=== PATIENT | female | born 1980 | race Caucasian/White ===

== ENCOUNTER 2016-04-01 11:49 | Emergency (ER) | payer BC, OTHER ==
[2016-04-01] MEDS ORDERED: PROMETHAZINE 25 MG/1 ML VIAL IM STA (13:49)
[2016-04-01] MEDS ORDERED: HYDROmorphone 1 MG/ML SYRINGE IM STA ×3 (13:49→15:13)
[2016-04-01] MEDS ORDERED: CYCLOBENZAPRINE 10 MG TABLET PO STA (13:49)
[2016-04-01] MEDS ORDERED: KETOROLAC 60 MG/2 ML VIAL IM STA (13:49)
[2016-04-01] MEDS ORDERED: HYDROmorphone 1 MG/ML SYRINGE ONE ×3 (13:52→15:21)
[2016-04-01] MEDS ORDERED: PROMETHAZINE 25 MG/1 ML VIAL ONE (13:52)
[2016-04-01] MEDS ORDERED: KETOROLAC 60 MG/2 ML VIAL ONE (13:53)
[2016-04-01] MEDS ORDERED: CYCLOBENZAPRINE 10 MG TABLET PO ONE (13:53)
[2016-04-01] MEDS ORDERED: diazePAM 5 MG TABLET PO STA (14:20)
[2016-04-01] MEDS ORDERED: diazePAM 5 MG TABLET PO ONE (14:21)
== END 2016-04-01 16:28 | disposition home or self-care (01) ==
DX: M54.2 Cervicalgia (principal); M25.511 Pain in right shoulder; R51 Headache
CPT/HCPCS: 20552; 96372; 99283; 99284; A9270; J1170

== ENCOUNTER 2016-12-07 14:38 | Emergency (ER) | payer BC, OTHER ==
[2016-12-07 14:54] VITALS: BP 166/99
--- NOTE | 2016-12-07 15:34 | ED Physician Documentation ---
PD HPI HEADACHE - Stated complaint Stated Complaint: HEADACHE - Chief complaint Chief Complaint: Neuro - History obtained from History obtained from: Patient - History of Present Illness Timing - onset: Other (This is a 36-year-old woman with daily headaches, usually a 3 out of 10, managed with tramadol, Topamax. For the last week her usual headache has been present but worse than normal, a whole body headache which is associated with neck stiffness, but that is common for her. No infectious symptoms such as fever or nasal congestion. She tried home remedies without relief. That said actually she is out of her Flexeril which he usually uses for headaches as well.) Review of Systems Constitutional: denies: Fever, Chills Ears: denies: Loss of hearing, Ear pain Nose: denies: Rhinorrhea / runny nose, Congestion, Sinus pressure / pain GI: reports: Vomiting. denies: Abdominal Pain, Diarrhea : denies: Now EGA PD PAST MEDICAL HISTORY - Past Medical History Neuro: Headache/migraine - Past Surgical History Past Surgical History: No - Present Medications Home Medications: Ambulatory Orders Medication Instructions Recorded Confirmed Cyclobenzaprine [Flexeril] 10 mg PRN 04/01/16 Lamotrigine Dose Unknown 04/01/16 [place] 100 mg TID 04/01/16 04/01/16 Potassium For Blood Pressure 04/01/16 Seroquel Dose Unknown 04/01/16 traMADol [Ultram] 1 - 2 tab QID PRN 04/01/16 04/01/16 Albuterol 2.5 mg PO BID 12/07/16 12/07/16 Topiramate [Topamax] 1 tab PO DAILY 12/07/16 12/07/16 - Allergies Allergies/Adverse Reactions: Allergies Allergy/AdvReac Type Severity Reaction Status Date / Time codeine Allergy Nausea Verified 12/07/16 14:55 Penicillins Allergy Rash Verified 12/07/16 14:55 - Social History Does the pt smoke?: No Smoking Status: Never smoker Does the pt drink ETOH?: No Does the pt have substance abuse?: No - Immunizations Immunizations are current?: Yes PD ED PE NORMAL - Vitals Vital signs reviewed: Yes - General General: Alert and oriented X 3, Other (Uncomfortable and photophobic) - HEENT HEENT: PERRL, EOMI - Neck Neck: Supple, no meningeal sign - Cardiac Cardiac: RRR, No murmur - Respiratory Respiratory: No respiratory distress, Clear bilaterally - Abdomen Abdomen: Non tender - Neuro Neuro: Alert and oriented X 3, co founder and 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 2-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, No motor deficit, No sensory deficit, Normal speech - Psych Psych: Normal mood, Normal affect Results - Vitals Vitals: Vital Signs - 24 hr 12/07/16 14:50 Temperature 36.5 C Heart Rate 92 Respiratory 18 Rate Blood Pressure 166/99 H O2 Saturation 100 Oxygen O2 Source Room air - Labs Labs: Laboratory Tests 12/07/16 12/07/16 15:45 15:45 Sodium 137 Potassium 3.6 Chloride 106 Carbon Dioxide 22 Anion Gap 9.0 BUN 15 Creatinine 0.9 Estimated GFR (MDRD) 71 L Glucose 99 Calcium 8.9 Last Dose Date UNKNOWN Last Dose Time UNKNOWN [place] 0.13 PD MEDICAL DECISION MAKING - ED course ED course: The headache is gradual in onset and similar to prior headaches. As such I doubt subarachnoid hemorrhage. There are no infectious symptoms such as fever or stiff neck to make me suspect meningitis. No carbon monoxide exposure by history. She was administered IV fluids, Toradol, Compazine, Benadryl. On recheck at 1430 her headache was back down to her baseline level and requested discharge. Departure - Departure Disposition: 01 Home, Self Care Clinical Impression: Migraine Qualifiers: Migraine type: without aura Status migrainosus presence: with status migrainosus Intractability: intractable Qualified Code(s): G43.011 - Migraine without aura, intractable, with status migrainosus Condition: Good Record reviewed to determine appropriate education?: Yes Instructions: ED Headache Migraine Comments: Call your doctor to arrange a follow-up appointment, make the next available appointment. In the interim, return anytime if worse or if new symptoms develop. Your blood pressure was elevated today on check into the emergency department. This does not mean that you have hypertension, it is a common phenomenon to come to the emergency department and have elevated blood pressure. I recommend that she see your primary care physician within the week to have it rechecked when you are feeling better. Discharge Date/Time: 12/07/16 16:47
[2016-12-07] MEDS ORDERED: diphenhydrAMINE INJ 50 MG/ML VIAL ONE (15:45)
[2016-12-07] MEDS ORDERED: SODIUM CHLORIDE FLUSH 0.9% 10 ML SYRINGE IVP ONE ×4 (15:45→15:49)
[2016-12-07] MEDS ORDERED: PROCHLORPERAZINE 10 MG/2 ML VIAL ONE (15:45)
[2016-12-07] MEDS ORDERED: DEXAMETHASONE 10 MG/ML VIAL ONE (15:45)
[2016-12-07] MEDS ORDERED: KETOROLAC 30 MG/ML VIAL ONE (15:45)
[2016-12-07] MEDS: PROCHLORPERAZINE 10 MG/2 ML VIAL IVP STA (15:55)
[2016-12-07] MEDS: DEXAMETHASONE 10 MG/ML VIAL IVP STA (16:06)
[2016-12-07] MEDS: SODIUM CHLORIDE 0.9% 1,000 ML IV ONE (16:10)
[2016-12-07] MEDS: KETOROLAC 60 MG/2 ML VIAL IVP STA (16:10)
[2016-12-07] MEDS: diphenhydrAMINE INJ 50 MG/ML VIAL IVP STA (16:11)
[2016-12-07 16:17] LABS: CALCIUM 8.9 mg/dL (8.5-10.3); CREATININE 0.9 mg/dL (0.4-1.0); POTASSIUM 3.6 mmol/L (3.5-5.0)
== END 2016-12-07 16:47 | disposition home or self-care (01) ==
LOC: ED 14:38
DX: G43.011 Migraine without aura, intractable, with status migrainosus (principal); R03.0 Elevated blood-pressure reading, without diagnosis of hypertension
CPT/HCPCS: 36415; 80048; 80178; 96361; 96374; 96375; 99283; 99284

== ENCOUNTER 2017-04-20 19:35 | Emergency (ER) | payer BC, OTHER ==
[2017-04-20] MEDS ORDERED: LIDOCAINE 1% 2 ML VIAL ONE (19:54)
[2017-04-20] MEDS ORDERED: TETANUS/DIPHTHERIA/PERTUSSIS 0.5 ML SYRINGE IM ONE (20:07)
[2017-04-20] MEDS ORDERED: BUFFERED LIDOCAINE 10 ML SYRINGE SUBQ STA (20:07)
--- NOTE | 2017-04-20 20:12 | ED Physician Documentation ---
PD HPI UPPER EXT INJURY - Stated complaint Stated Complaint: RT INDEX FINGER LACERATION - Chief complaint Chief Complaint: Laceration - History obtained from History obtained from: Patient - History of Present Illness Location: Other (Right-handed woman with unknown tetanus status cut herself on a broken glass dish tonight at home and has a laceration on the right index finger.) Review of Systems Constitutional: reports: Reviewed and negative Eyes: reports: Reviewed and negative Nose: reports: Reviewed and negative Cardiac: reports: Reviewed and negative PD PAST MEDICAL HISTORY - Past Medical History Past Medical History: Yes Neuro: Headache/migraine - Past Surgical History Past Surgical History: No - Present Medications Home Medications: Ambulatory Orders Medication Instructions Recorded Confirmed [place] 100 mg TID 04/01/16 04/01/16 Potassium For Blood Pressure 04/01/16 Seroquel Dose Unknown 04/01/16 traMADol [Ultram] 1 - 2 tab QID PRN 04/01/16 04/01/16 Topiramate [Topamax] 1 tab PO DAILY 12/07/16 12/07/16 - Allergies Allergies/Adverse Reactions: Allergies Allergy/AdvReac Type Severity Reaction Status Date / Time codeine Allergy Nausea Verified 04/20/17 19:40 Penicillins Allergy Rash Verified 04/20/17 19:40 - Social History Does the pt smoke?: No Smoking Status: Never smoker Does the pt drink ETOH?: No Does the pt have substance abuse?: No - Immunizations Immunizations are current?: Yes PD ED PE NORMAL - Vitals Vital signs reviewed: Yes - General General: Alert and oriented X 3, No acute distress - Extremities Extremities: Other (On the radial side of the right index finger over the mid phalanx there is a linear laceration of about 1 cm. There is no neurovascular compromise at the tip and no tendon injury.) - Neuro Neuro: Alert and oriented X 3, Normal speech - Psych Psych: Normal mood, Normal affect Results - Vitals Vitals: Vital Signs - 24 hr 04/20/17 19:39 Temperature 36.3 C L Heart Rate 83 Respiratory 18 Rate Blood Pressure 182/93 H O2 Saturation 100 Oxygen O2 Source Room air Procedures - Laceration (location) R 2nd finger Length in cm: 1 Wound type: Linear Neurovascular status: Sensory intact, Motor intact, Vascular intact Tendon involvement: Tendon intact Anesthesia: Lidocaine 1%, With bicarb (digital block with excellent anesthesia) Wound Preparation: Chlorhexadine, Irrigated copiously NS Skin layer closure: Nylon, Interrupted, Size #-0 - enter number (5-0), Sutures - enter # (5) Other: Tetanus booster given Complexity: Simple Departure - Departure Disposition: 01 Home, Self Care Clinical Impression: Laceration Condition: Good Record reviewed to determine appropriate education?: Yes Instructions: ED Laceration All Comments: Come back for any signs of infection which would include: Redness, swelling, drainage, increased pain, or fevers. Follow-up with your physician in 10-14 days for suture removal. Your blood pressure was elevated today on check into the emergency department. This does not mean that you have hypertension, it is a common phenomenon to come to the emergency department and have elevated blood pressure. I recommend that you see your primary care physician within the week to have it rechecked when you are feeling better.
[2017-04-20] MEDS ORDERED: BUFFERED LIDOCAINE 10 ML SYRINGE ONE (20:15)
[2017-04-20 20:40] VITALS: BP 175/90
== END 2017-04-20 20:45 | disposition home or self-care (01) ==
LOC: ED 19:35
DX: S61.210A Laceration without foreign body of right index finger without damage to nail, initial encounter (principal); W25.XXXA Contact with sharp glass, initial encounter; Y93.G1 Activity, food preparation and clean up; Y92.009 Unspecified place in unspecified non-institutional (private) residence as the place of occurrence of the external cause; Z23 Encounter for immunization; R03.0 Elevated blood-pressure reading, without diagnosis of hypertension
CPT/HCPCS: 12001; 90471; 99282; 99283

== ENCOUNTER 2017-07-23 15:10 | Emergency (ER) | payer BC ==
[2017-07-23] MEDS ORDERED: SODIUM CHLORIDE 0.9% 1,000 ML IV ONE (15:24)
[2017-07-23] MEDS ORDERED: KETOROLAC 60 MG/2 ML VIAL IVP STA (15:24)
[2017-07-23] MEDS ORDERED: DEXAMETHASONE 10 MG/ML VIAL IVP STA (15:24)
[2017-07-23] MEDS ORDERED: PROCHLORPERAZINE 10 MG/2 ML VIAL IVP STA (15:25)
[2017-07-23] MEDS ORDERED: diphenhydrAMINE INJ 50 MG/ML VIAL IVP STA (15:25)
--- NOTE | 2017-07-23 15:29 | ED Physician Documentation ---
PD HPI HEADACHE - Stated complaint Stated Complaint: HEADACHE - Chief complaint Chief Complaint: Heent - History obtained from History obtained from: Patient, Family - History of Present Illness Timing - onset: How many days ago (5) Timing - onset during: Rest Timing - duration: Days (5) Timing - details: Gradual onset, Still present Worst headache ever?: No: Worst headache ever? Location: Right Quality: Throbbing Associated symptoms: Stiff neck, Nausea, Vomiting Improved by: Rest, Dark room, Quiet, Meds Worsened by: Light, Noise, Moving Contributing factors: No: Anticoagulated, Recent illness Similar symptoms before: Diagnosis (persistent daily headache) Recently seen: Other - Additional information Additional information: 36-year-old female who has a history of persistent daily headache following a head injury has developed a headache that is now lasted 4 days. She has been on a combination of topiramate max and Percocet for the past year and this is worked well. She was recently changed from Percocet to hydrocodone and this did not work at all for the patient. She began vomiting the medication and has been off of it for at least 1 week. She continues to have headache vomiting and has not eaten anything for the past 24 hours. She is not able to fluids down. She has had to have rescue from a headache like this only infrequently. Review of Systems Constitutional: denies: Fever, Chills, Myalgias Eyes: reports: Photophobia. denies: Decreased vision Ears: denies: Ear pain Nose: denies: Rhinorrhea / runny nose, Congestion Throat: denies: Sore throat Cardiac: denies: Chest pain / pressure, Palpitations Respiratory: denies: Dyspnea, Cough GI: reports: Nausea, Vomiting : denies: Dysuria, Frequency Skin: denies: Rash Musculoskeletal: reports: Neck pain. 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 - Present Medications Home Medications: Ambulatory Orders Medication Instructions Recorded Confirmed Topiramate [Topamax] 1 tab PO DAILY 12/07/16 12/07/16 - Allergies Allergies/Adverse Reactions: Allergies Allergy/AdvReac Type Severity Reaction Status Date / Time codeine Allergy Nausea Verified 07/23/17 15:17 Penicillins Allergy Rash Verified 07/23/17 15:17 - Social History Does the pt smoke?: No Smoking Status: Never smoker Does the pt drink ETOH?: No Does the pt have substance abuse?: No - Immunizations Immunizations are current?: Yes PD ED PE NORMAL - Vitals Vital signs reviewed: Yes (hypertensive ) - General General: Alert and oriented X 3, Well developed/nourished, Other (36 y/o female appears to be in pain and is clutching the right side of her head. ) - HEENT HEENT: Atraumatic, PERRL, EOMI, Ears normal - Neck Neck: Supple, no meningeal sign, No bony TTP, Other (There is tenderness in the trapizius at the insertion to the occiput.) - Cardiac Cardiac: RRR, No murmur - Respiratory Respiratory: No respiratory distress, Clear bilaterally - Abdomen Abdomen: Soft, Non tender - Back Back: No CVA TTP, No spinal TTP - Derm Derm: Normal color, Warm and dry, No rash - Extremities Extremities: No deformity, No edema - Neuro Neuro: Alert and oriented X 3, miniature train driver 2-12 intact, No motor deficit, No sensory deficit, Normal speech Eye Opening: Spontaneous Motor: Obeys Commands Verbal: Oriented GCS Score: 15 - Psych Psych: Normal mood, Normal affect Results - Vitals Vitals: Vital Signs - 24 hr 07/23/17 15:14 Temperature 36.2 C L Heart Rate 79 Respiratory 16 Rate Blood Pressure 168/100 H O2 Saturation 100 Oxygen O2 Source Room air PD MEDICAL DECISION MAKING - ED course Complexity details: reviewed results, re-evaluated patient, considered differential, d/w patient ED course: 36-year-old female with daily persistent headache has been intractable headache and this is treated here in the emergency department with a cocktail of Benadryl Compazine Toradol dexamethasone and saline. She has marked improvement in her symptoms and is discharged home. Departure - Departure Disposition: 01 Home, Self Care Clinical Impression: Tension headache Condition: Stable Instructions: ED Headache Tension Follow-Up: Your, doctor [Other]
[2017-07-23 16:33] VITALS: BP 179/116
== END 2017-07-23 16:33 | disposition home or self-care (01) ==
LOC: ED 15:10
DX: G44.209 Tension-type headache, unspecified, not intractable (principal)
CPT/HCPCS: 96361; 96374; 96375; 99283; 99284; J1200

== ENCOUNTER 2017-11-11 09:04 | Outpatient (CLI) | payer BC ==
--- NOTE | 2017-11-11 15:01 | Ultrasound Report ---
Reason: ENCTR FOR TEST,RESULT POSITIVE Procedure Date: 11/11/2017 Accession Number: [id number] / [id number] Procedure: US - OB First Trimester CPT Code: FULL RESULT: EXAM: FIRST TRIMESTER OBSTETRIC ULTRASOUND (Less than 11 weeks) EXAM DATE: 11/11/2017 11:07 AM. CLINICAL HISTORY: Positive test. Dating exam. LMP: 09/15/2017. COMPARISONS: None. TECHNIQUE: Transabdominal ultrasound examination with static image documentation. CLINICAL DATES: EGA 8 weeks 1 day with MOUNA 06/22/2018 based on LMP. ASSESSMENT: Gestational Sac: Single intrauterine. Mean gestational sac diameter: 22.0 mm = 6 weeks 6 days. MOUNA 07/01/2018. Embryo: CRL (crown-rump length) 10.6 mm = 7 weeks 1 day. Cardiac activity: 103 beats per minute. Yolk sac: 3.7 mm. Amniotic fluid: Not accurately assessed at this gestational age. Early placenta: Not visible at this gestational age. Other: 9.8 x 3.0 x 15.6 mm perigestational fluid collection. MATERNAL STRUCTURES: Uterus: Anteverted. Unremarkable. Cervix: Closed. Right Ovary/Adnexa: The ovary measures 3.6 x 2.1 x 2.7 cm, volume 10.6 cc. Unremarkable. Left Ovary/Adnexa: The ovary measures 4.3 x 3.1 x 3.1 cm, volume 21.6 cc. Normal blood flow. 2.1 x 1.9 x 1.9 cm corpus luteal cyst. Free Fluid: Tiny amount of fluid adjacent to the left ovary. . Other: None. IMPRESSION: 1. Single viable intrauterine at EGA 7 weeks 1 day with MOUNA 06/29/2018 based on crown-rump length, which is mildly discrepant with clinical dates. 2. Assigned dating is MOUNA 06/29/2018 based on current ultrasound. RADIA
== END 2017-11-11 09:05 | disposition home or self-care (01) ==
LOC: DI 09:04
PROVIDERS: ATTEND Obstetrics & Gynecology
DX: Z32.01 Encounter for pregnancy test, result positive (principal)
CPT/HCPCS: 76801

== ENCOUNTER 2017-11-30 08:00 | Outpatient (CLI) | payer BC ==
[2017-11-30 16:17] LABS: MUDS CUTOFF CONCENTRATIONS CUTOFF CONC BELOW:
[2017-11-30 16:32] LABS: AMPHETAMINE SCREEN,URINE NEGATIVE (NEGATIVE); BENZODIAZEPINES SCREEN, URINE NEGATIVE (NEGATIVE); COCAINE SCREEN URINE NEGATIVE (NEGATIVE); METHADONE SCREEN, URINE NEGATIVE (NEGATIVE); METHAMPHETAMINES SCREEN, URINE NEGATIVE (NEGATIVE); OPIATE SCREEN, URINE NEGATIVE (NEGATIVE); OXYCODONE SCREEN, URINE NEGATIVE (NEGATIVE); PROPOXYPHENE SCREEN, URINE NEGATIVE (NEGATIVE); TRICYCLIC ANTIDEPRESSANT,URINE NEGATIVE (NEGATIVE)
== END 2017-11-30 08:01 | disposition home or self-care (01) ==
LOC: LAB.R 08:00
PROVIDERS: ATTEND Obstetrics & Gynecology
DX: Z36.9 Encounter for antenatal screening, unspecified (principal)
CPT/HCPCS: 80306

== ENCOUNTER 2017-12-10 04:28 | Emergency (ER) | payer BC ==
[2017-12-10 05:02] LABS: BASOPHILS # (AUTO) 0.1 10^3/uL (0.0-0.1); BASOPHILS % (AUTO) 1.5 %; EOSINOPHILS # (AUTO) 0.2 10^3/uL (0.0-0.7); EOSINOPHILS % (AUTO) 2.8 %; HGB - HEMOGLOBIN 12.5 g/dL (12.0-16.0); LYMPHOCYTES # (AUTO) 1.9 10^3/uL (1.5-3.5); LYMPHOCYTES % (AUTO) 23.3 %; MEAN CORPUSCULAR HEMOGLOBIN 26.9 pg (27.0-31.0); MEAN CORPUSCULAR HGB CONC 33.1 g/dL (32.0-36.0); MEAN CORPUSCULAR VOLUME 81.3 fL (81.0-99.0); MEAN PLATELET VOLUME 8.8 fL (7.9-10.8); MONOCYTES # (AUTO) 0.5 10^3/uL (0.0-1.0); MONOCYTES % (AUTO) 5.9 %; NEUTROPHILS # (AUTO) 5.3 10^3/uL (1.5-6.6); NEUTROPHILS % (AUTO) 66.5 %; PLT - PLATELET COUNT 218 10^3/uL (130-450); RED BLOOD COUNT 4.64 10^6/uL (4.20-5.40); RED CELL DISTRIBUTION WIDTH 16.4 % (12.0-15.0)
[2017-12-10 05:11] LABS: ALBUMIN 4.3 g/dL (3.2-5.5); ALBUMIN/GLOBULIN RATIO 1.2 (1.0-2.2); BILIRUBIN,TOTAL 0.6 mg/dL (0.2-1.0); CALCIUM 9.5 mg/dL (8.5-10.3); CREATININE 0.7 mg/dL (0.4-1.0); TOTAL PROTEIN 7.8 g/dL (6.7-8.2)
--- NOTE | 2017-12-10 05:54 | ED Physician Documentation ---
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 The patient reports pain roughly 13 weeks with her third . No other associated symptoms. 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 - Present Medications Home Medications: Ambulatory Orders Medication Instructions Recorded Confirmed Hydrocodone/Acetaminophen 1 each PO Q6H PRN #14 tablet 12/10/17 [Hydrocodon-Acetaminophen 5-325] Naproxen [Naprosyn] 500 mg PO BID PRN 30 Days #30 12/10/17 tablet #108/Iron,Carbonyl/FA 1 tab PO DAILY 12/10/17 12/10/17 [Kosher Plus Iron Tab] - Allergies Allergies/Adverse Reactions: Allergies Allergy/AdvReac Type Severity Reaction Status Date / Time codeine Allergy Nausea Verified 12/10/17 04:34 Penicillins Allergy Rash Verified 12/10/17 04:34 - Social History Does the pt smoke?: No Smoking Status: Never smoker Does the pt drink ETOH?: No Does the pt have substance abuse?: No - Immunizations Immunizations are current?: Yes PD ED PE NORMAL - General General: Alert and oriented X 3, No acute distress - HEENT HEENT: Atraumatic, PERRL, EOMI, Ears normal - Neck Neck: Supple, no meningeal sign - Cardiac Cardiac: RRR, Strong equal pulses - Respiratory Respiratory: No respiratory distress, Clear bilaterally - Abdomen Abdomen: Soft, Non distended. No: Non tender (The patient has lower abdominal tenderness, no rebound or peritoneal signs) - Derm Derm: Normal color - Extremities Extremities: No deformity, No calf tenderness / cord - Neuro Neuro: Alert and oriented X 3, Normal speech - Psych Psych: Normal mood Results - Vitals Vitals: Vital Signs - 24 hr 12/10/17 04:31 Temperature 36.5 C Heart Rate 103 H Respiratory 16 Rate Blood Pressure 173/115 H O2 Saturation 99 Oxygen O2 Source Room air - Labs Labs: Laboratory Tests 12/10/17 12/10/17 12/10/17 04:45 04:45 04:45 WBC 8.0 RBC 4.64 Hgb 12.5 Hct 37.7 MCV 81.3 MCH 26.9 L MCHC 33.1 RDW 16.4 H Plt Count 218 MPV 8.8 Neut # (Auto) 5.3 Lymph # (Auto) 1.9 [place] # (Auto) 0.5 Eos # (Auto) 0.2 Baso # (Auto) 0.1 Absolute Nucleated RBC 0.01 Nucleated RBC % 0.1 Sodium Potassium Chloride Carbon Dioxide Anion Gap BUN Creatinine Estimated GFR (MDRD) Glucose Calcium Total Bilirubin AST ALT Alkaline Phosphatase Total Protein Albumin Globulin Albumin/Globulin Ratio Lipase HCG, Quant 8254.00 Blood Type O POSITIVE Antibody Screen NEGATIVE 12/10/17 04:45 WBC RBC Hgb Hct MCV MCH MCHC RDW Plt Count MPV Neut # (Auto) Lymph # (Auto) [place] # (Auto) Eos # (Auto) Baso # (Auto) Absolute Nucleated RBC Nucleated RBC % Sodium 138 Potassium 4.0 Chloride 105 Carbon Dioxide 23 Anion Gap 10.0 BUN 19 Creatinine 0.7 Estimated GFR (MDRD) 94 Glucose 104 H Calcium 9.5 Total Bilirubin 0.6 AST 18 ALT 16 Alkaline Phosphatase 57 Total Protein 7.8 Albumin 4.3 Globulin 3.5 Albumin/Globulin Ratio 1.2 Lipase 32 HCG, Quant Blood Type Antibody Screen - Rads (name of study) US OB Radiology: Final report received (IMPRESSION: Aborted . No vascular masses identified within the endometrial canal to suggest definitive vascular retained products of conception. ) PD MEDICAL DECISION MAKING - ED course ED course: On reevaluation the patient is resting comfortably and appears to be in no acute distress. I discussed with the patient the findings on the ultrasound. Presently, the patient appears appropriate for discharge and ongoing outpatient management. I recommended that she follow-up with primary care for further workup and reevaluation to help definitively rule out any possibility of retained products of conception. I discussed warning signs and recommended returning to the emergency department immediately for any worsening or any concerns. 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 Please return back to the emergency department immediately for any worsening symptoms or any concerns.
--- NOTE | 2017-12-10 06:31 | Ultrasound Report ---
Reason: with pain Procedure Date: 12/10/2017 Accession Number: [id number] / [id number] Procedure: US - OB First Trimester CPT Code: FULL RESULT: EXAM: FIRST TRIMESTER OBSTETRIC ULTRASOUND (Less than 11 weeks) EXAM DATE: 12/10/2017 05:56 AM. CLINICAL HISTORY: with pain. LMP: 09/15/2017, 12 weeks 2 days. COMPARISONS: OB FIRST TRIMESTER 11/11/2017 10:16 AM. TECHNIQUE: Transabdominal ultrasound examination with static image documentation. FINDINGS: Gestational Sac: No intrauterine or extrauterine seen. Placenta: Not visible at this gestational age. Amniotic fluid: Not accurately assessed at this gestational age. Uterus: Unremarkable anteverted appearance. Endometrium contains a moderate amount of heterogeneous material, likely blood products. No vascular mass identified. Cervix: Unremarkable. Right Ovary: 3.2 x 2.0 x 3.6 cm. Normal echotexture and blood flow. Left Ovary: 3.4 x 2.9 x 4.1 cm. Normal echotexture and blood flow. Free Fluid: None. Other: None. IMPRESSION: Aborted . No vascular masses identified within the endometrial canal to suggest definitive vascular retained products of conception. RADIA
[2017-12-10] MEDS ORDERED: ACETAMINOPHEN 500 MG TABLET PO STA (06:39)
[2017-12-10] MEDS ORDERED: KETOROLAC 60 MG/2 ML VIAL IVP STA (06:39)
[2017-12-10 06:46] VITALS: BP 166/99
== END 2017-12-10 07:20 | disposition home or self-care (01) ==
LOC: ED 04:28
DX: O03.9 Complete or unspecified spontaneous abortion without complication (principal)
CPT/HCPCS: 36415; 76801; 80053; 83690; 84702; 85025; 86850; 86900; 86901; 96374; 99283; 99284; A9270

== ENCOUNTER 2017-12-11 01:25 | Outpatient (CLI) | payer BC | END 2017-12-11 01:26 | disposition EMS.NT | LOC: EMS 01:25 | PROVIDERS: ATTEND Surgery | DX: R42 Dizziness and giddiness (principal); R10.9 Unspecified abdominal pain ==

== ENCOUNTER 2018-04-02 17:37 | Emergency (ER) | payer BC ==
[2018-04-02] MEDS ORDERED: IBUPROFEN 800 MG TABLET PO STA (17:54)
--- NOTE | 2018-04-02 17:57 | ED Physician Documentation ---
PD HPI CHEST PAIN - Stated complaint Stated Complaint: CHEST/BACK PX - Chief complaint Chief Complaint: Cardiac - History obtained from History obtained from: Patient - History of Present Illness Timing - onset: Other (This is a 37-year-old woman with no significant personal medical history has been under a lot of stress lately. She was yelling at her teenage son the other night and developed sharp chest pain that is been intermittent but generally comes along with motion and also some low back pain and a headache ever since. None of the symptoms are severe but she is worried because she has a significant family history of early onset coronary disease. She denies pedal edema, calf pain, recent travel, hemoptysis, shortness of breath, dizziness. She is not on control.) Review of Systems Constitutional: denies: Fever, Chills Respiratory: denies: Dyspnea, Cough GI: reports: Nausea. denies: Abdominal Pain, Vomiting : denies: Dysuria, Frequency PD PAST MEDICAL HISTORY - Past Medical History Neuro: Migraines - Past Surgical History Past Surgical History: Yes Ortho: Shoulder arthroplasty /SPRUE KNOCKER: section - Allergies Allergies/Adverse Reactions: Allergies Allergy/AdvReac Type Severity Reaction Status Date / Time codeine Allergy Nausea Verified 04/02/18 18:47 Penicillins Allergy Rash Verified 04/02/18 18:47 - Social History Does the pt smoke?: No Smoking Status: Never smoker Does the pt drink ETOH?: No Does the pt have substance abuse?: No - Immunizations Immunizations are current?: Yes PD ED PE NORMAL - Vitals Vital signs reviewed: Yes - General General: Alert and oriented X 3, No acute distress - HEENT HEENT: PERRL, EOMI - Neck Neck: Supple, no meningeal sign, No bony TTP - Cardiac Cardiac: RRR, No murmur - Respiratory Respiratory: No respiratory distress, Clear bilaterally - Abdomen Abdomen: Normal bowel sounds, Soft, Non tender - Derm Derm: Normal color, Warm and dry - Extremities Extremities: No edema, No calf tenderness / cord - Neuro Neuro: Alert and oriented X 3, Normal speech Results - Vitals Vitals: Vital Signs - 24 hr 04/02/18 17:52 Temperature 36.8 C Heart Rate 79 Respiratory 16 Rate Blood Pressure 151/104 H O2 Saturation 100 Oxygen O2 Source Room air - EKG (time done) 1804 Rate: Rate (enter#) (61) Rhythm: NSR [place]: Normal Intervals: Normal [place] QRS: Normal Ischemia: Normal ST segments Computer interpretation: Agree with computer - Labs Labs: Laboratory Tests 04/02/18 04/02/18 04/02/18 18:03 18:03 18:03 WBC 6.9 RBC 4.56 Hgb 11.3 L Hct 35.5 L MCV 77.9 L MCH 24.9 L MCHC 32.0 RDW 16.9 H Plt Count 231 MPV 9.0 Neut # (Auto) 3.7 Lymph # (Auto) 2.5 [place] # (Auto) 0.5 Eos # (Auto) 0.2 Baso # (Auto) 0.0 Absolute Nucleated RBC 0.00 Nucleated RBC % 0.0 Sodium 136 Potassium 3.6 Chloride 106 Carbon Dioxide 22 Anion Gap 8.0 BUN 15 Creatinine 0.7 Estimated GFR (MDRD) 94 Glucose 87 Calcium 9.0 Total Bilirubin 0.6 AST 17 ALT 14 Alkaline Phosphatase 47 Troponin I < 0.04 Total Protein 7.6 Albumin 4.6 Globulin 3.0 Albumin/Globulin Ratio 1.5 Lipase 36 - Rads (name of study) 2v chest Radiology: EMP read contemporaneously (NAD) PD MEDICAL DECISION MAKING - ED course ED course: I considered pulmonary embolism in this patient. Clinically the pretest probability of pulmonary embolism is less than 15%. I applied to the PERC rules as follows: The patient's age is under 50, heart rate less than 100, oxygen saturation greater than 94%, the patient does not have a history of DVT or PE. Patient has no recent trauma or surgery. The patient has no hemoptysis. The patient is not on exogenous estrogens. The patient does not have clinical signs suggesting DVT. As such the patient ruled out for pulmonary embolism by PERC criteria. Heart score 1 Departure - Departure Disposition: 01 Home, Self Care Clinical Impression: Chest pain Qualifiers: Chest pain type: unspecified Qualified Code(s): R07.9 - Chest pain, unspecified Anemia Qualifiers: Anemia type: unspecified type Qualified Code(s): D64.9 - Anemia, unspecified Condition: Good Record reviewed to determine appropriate education?: Yes Instructions: ED Chest Pain NonCardiac Comments: Your blood pressure was elevated today on check into the emergency department. This does not mean that you have hypertension, it is a common phenomenon to come to the emergency department and have elevated blood pressure. I recommend that you see your primary care physician within the week to have it rechecked when you are feeling better. Call your doctor to arrange a follow-up appointment, make the next available appointment. In the interim, return anytime if worse or if new symptoms develop.
[2018-04-02 18:08] LABS: BASOPHILS % (AUTO) 0.6 %; EOSINOPHILS # (AUTO) 0.2 10^3/uL (0.0-0.7); EOSINOPHILS % (AUTO) 2.2 %; HGB - HEMOGLOBIN 11.3 g/dL (12.0-16.0); LYMPHOCYTES # (AUTO) 2.5 10^3/uL (1.5-3.5); LYMPHOCYTES % (AUTO) 36.7 %; MEAN CORPUSCULAR HEMOGLOBIN 24.9 pg (27.0-31.0); MEAN CORPUSCULAR VOLUME 77.9 fL (81.0-99.0); MONOCYTES # (AUTO) 0.5 10^3/uL (0.0-1.0); NEUTROPHILS # (AUTO) 3.7 10^3/uL (1.5-6.6); NEUTROPHILS % (AUTO) 53.5 %; PLT - PLATELET COUNT 231 10^3/uL (130-450); RED BLOOD COUNT 4.56 10^6/uL (4.20-5.40); RED CELL DISTRIBUTION WIDTH 16.9 % (12.0-15.0); WHITE BLOOD COUNT 6.9 x10^3/uL (4.8-10.8)
[2018-04-02 18:21] LABS: ALBUMIN 4.6 g/dL (3.2-5.5); ALBUMIN/GLOBULIN RATIO 1.5 (1.0-2.2); BILIRUBIN,TOTAL 0.6 mg/dL (0.2-1.0); CREATININE 0.7 mg/dL (0.4-1.0); TOTAL PROTEIN 7.6 g/dL (6.7-8.2)
--- NOTE | 2018-04-02 18:55 | XRAY Report ---
Reason: chest pain Procedure Date: 04/02/2018 Accession Number: [id number] / [id number] Procedure: XR - Chest 2 View X-Ray CPT Code: 06758 FULL RESULT: EXAM: CHEST RADIOGRAPHY EXAM DATE: 04/02/2018 06:25 PM. CLINICAL HISTORY: Left-sided chest and back pain COMPARISON: None. TECHNIQUE: 2 views. FINDINGS: Lungs/Pleura: No focal opacities evident. No pleural effusion. No pneumothorax. Normal volumes. Mediastinum: Heart and mediastinal contours are unremarkable. Other: None. IMPRESSION: Normal 2-view chest radiography. RADIA
[2018-04-02 19:06] VITALS: BP 168/99
== END 2018-04-02 19:12 | disposition home or self-care (01) ==
LOC: ED 17:37
DX: R07.9 Chest pain, unspecified (principal); D64.9 Anemia, unspecified; R03.0 Elevated blood-pressure reading, without diagnosis of hypertension
CPT/HCPCS: 36415; 71046; 80053; 83690; 84484; 85025; 93005; 99283; A9270

== ENCOUNTER 2019-02-13 02:10 | Outpatient (CLI) | payer BC ==
[2019-02-13 03:04] VITALS: BP 160/90
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
--- NOTE | 2019-02-24 11:05 | Labor Flowsheet ---
Labor Flowsheet Datetime Report Generated by CPN: 02/24/2019 11:04 Datetime: 02/16/2019 05:39 VITAL SIGNS NBP Sys/Maddie/Mean (mmHg): 125 : 83 : 91 Pulse: 98 COMMUNICATION LaborFlag: OB Triage Datetime: 02/13/2019 08:21 ASSESSMENT A Comments: vibroacoustiic stem Datetime: 02/13/2019 02:29 SpO2 (%): 100 Datetime: 02/13/2019 02:03 Stage of : OB Triage
== END 2019-02-13 02:37 | disposition home or self-care (01) ==
LOC: FBP 02:10 → WFO 02:10
PROVIDERS: ATTEND Obstetrics & Gynecology
DX: O9A.213 Injury, poisoning and certain other consequences of external causes complicating pregnancy, third trimester (principal); T59.811A Toxic effect of smoke, accidental (unintentional), initial encounter; J70.5 Respiratory conditions due to smoke inhalation; X08.8XXA Exposure to other specified smoke, fire and flames, initial encounter; Y92.009 Unspecified place in unspecified non-institutional (private) residence as the place of occurrence of the external cause; Z3A.35 35 weeks gestation of pregnancy
CPT/HCPCS: 99213

== ENCOUNTER 2019-02-13 02:40 | Emergency (ER) | payer BC ==
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
[2019-02-13] MEDS ORDERED: NIFEdipine ER 30 MG TABLET PO STA (05:43)
[2019-02-13] MEDS ORDERED: LABETALOL 100 MG TABLET PO STA (05:43)
[2019-02-13 09:08] VITALS: BP 154/82
== END 2019-02-13 09:22 | disposition home or self-care (01) ==
LOC: ED 02:40
DX: O99.513 Diseases of the respiratory system complicating pregnancy, third trimester (principal); T59.811A Toxic effect of smoke, accidental (unintentional), initial encounter; J70.5 Respiratory conditions due to smoke inhalation; Y92.008 Other place in unspecified non-institutional (private) residence as the place of occurrence of the external cause; Z3A.36 36 weeks gestation of pregnancy
CPT/HCPCS: 36415; 99284; 99285; A9270; 82375

== ENCOUNTER 2019-11-22 08:06 | Emergency (ER) | payer OTHER, MEDICAID ==
[2019-11-22] MEDS ORDERED: SODIUM CHLORIDE 0.9% 1,000 ML IV STA (08:31)
[2019-11-22] MEDS ORDERED: BUPIVACAINE 0.5% PF 10 ML VIAL SUBQ STA (08:31)
[2019-11-22] MEDS ORDERED: SUMAtriptan 6 MG/0.5 ML VIAL SUBQ STA (08:31)
[2019-11-22] MEDS ORDERED: KETOROLAC 15 MG/ML VIAL IVP STA (08:31)
[2019-11-22] MEDS ORDERED: METOCLOPRAMIDE 10 MG/2 ML VIAL IVP STA (08:31)
[2019-11-22] MEDS ORDERED: diphenhydrAMINE INJ 50 MG/ML VIAL IVP STA (08:31)
--- NOTE | 2019-11-22 08:34 | ED Physician Documentation ---
PD HPI HEADACHE - Stated complaint Stated Complaint: CHAVEZ - Chief complaint Chief Complaint: Neuro - History obtained from History obtained from: Patient - Additional information Additional information: 39-year-old woman who has chronic migraines. She is on day 3 of the current headache which is generally typical for her but lasting longer and a little more severe. Pain seems to be focused in the occiput and radiates towards the eyes. She is nauseous and light-sensitive. No fevers. Review of Systems Constitutional: denies: Fever, Chills Nose: reports: Reviewed and negative Cardiac: reports: Reviewed and negative Respiratory: reports: Reviewed and negative PD PAST MEDICAL HISTORY - Past Medical History Past Medical History: Yes Cardiovascular: Hypertension Respiratory: None Neuro: Migraines Endocrine/Autoimmune: None GI: None CARGO BROKER: Miscarriage(s) : None HEENT: None Musculoskeletal: None Derm: None - Past Surgical History Past Surgical History: Yes Ortho: Shoulder arthroplasty /CARGO BROKER: section - Present Medications Home Medications: Ambulatory Orders Medication Instructions Recorded Confirmed Labetalol HCl 300 mg PO TID 02/13/19 02/13/19 NIFEdipine [Procardia Xl] 30 mg PO DAILY 02/13/19 02/13/19 Propranolol HCl 40 mg PO BID #60 tablet 11/22/19 - Allergies Allergies/Adverse Reactions: Allergies Allergy/AdvReac Type Severity Reaction Status Date / Time codeine Allergy Nausea Verified 11/22/19 08:11 Penicillins Allergy Rash Verified 11/22/19 08:11 - Social History Does the pt smoke?: No Smoking Status: Never smoker Does the pt drink ETOH?: No Does the pt have substance abuse?: No - Immunizations Immunizations are current?: Yes - POLST Patient has POLST: No PD ED PE NORMAL - Vitals Vital signs reviewed: Yes - General General: Alert and oriented X 3, No acute distress - HEENT HEENT: PERRL, EOMI - Neck Neck: Supple, no meningeal sign, No bony TTP - Neuro Neuro: Alert and oriented X 3, nurseryman assistant 2-12 intact, No motor deficit, No sensory deficit, Normal speech Results - Vitals Vitals: Vital Signs - 24 hr 11/22/19 11/22/19 11/22/19 08:11 08:21 09:37 Temperature 36.5 C 37.2 C Heart Rate 82 69 69 Respiratory 18 20 16 Rate Blood Pressure 163/103 H 176/97 H 197/102 H O2 Saturation 97 99 99 Oxygen O2 Source Room air Procedures - General procedure General procedure: Trigger point injection was done in the upper right side neck musculature with 5 mL of 0.5% Marcaine without epinephrine p alcohol prep. PD MEDICAL DECISION MAKING - ED course ED course: The headache is gradual in onset and similar to prior headaches. As such I doubt subarachnoid hemorrhage. There are no infectious symptoms such as fever or stiff neck to make me suspect meningitis. No carbon monoxide exposure by history. After the administration of IV Reglan, Benadryl, Toradol she was feeling much better. Also trigger point injection in the right posterior neck musculature. Blood pressure remained high. She just started on Norvasc yesterday. Seems reasonable to add a beta-mila for this as well as migraine prophylaxis. Headache much better after the above interventions though and requesting discharge. Departure - Departure Disposition: 01 Home, Self Care Clinical Impression: Headache Qualifiers: Headache type: unspecified Headache chronicity pattern: acute headache Intractability: not intractable Qualified Code(s): R51 - Headache Hypertension Qualifiers: Hypertension type: essential hypertension Qualified Code(s): I10 - Essential (primary) hypertension Condition: Good Record reviewed to determine appropriate education?: Yes Instructions: ED Headache Migraine Prescriptions: Propranolol HCl 40 mg PO BID #60 tablet Comments: As discussed, it is reasonable to start a beta-mila (propranolol) for both migraine prophylaxis and your blood pressure pending follow-up with a neurologist. Continue your efforts to try to follow-up with a neurologist. Return if worsening. Discharge Date/Time: 11/22/19 09:44
[2019-11-22 09:44] VITALS: BP 197/102
== END 2019-11-22 09:44 | disposition home or self-care (01) ==
LOC: ED 08:06
DX: R51 Headache (principal); M79.18 Myalgia, other site; I10 Essential (primary) hypertension; Z86.69 Personal history of other diseases of the nervous system and sense organs
CPT/HCPCS: 20552; 96372; 96374; 99283; J1200; J2765

== ENCOUNTER 2020-01-15 15:00 | Outpatient (CLI) | payer MEDICAID | END 2020-01-15 15:01 | disposition home or self-care (01) | LOC: COV 15:00 | PROVIDERS: ATTEND Family Medicine | DX: R05 Cough (principal); R06.02 Shortness of breath; M79.10 Myalgia, unspecified site; R53.83 Other fatigue; J02.9 Acute pharyngitis, unspecified; R19.7 Diarrhea, unspecified; R09.81 Nasal congestion; Z20.828 Contact with and (suspected) exposure to other viral communicable diseases ==

== ENCOUNTER 2020-07-14 12:05 | Emergency (ER) | payer OTHER, MEDICAID ==
--- OUTSIDE RECORDS SUMMARY | 2020-07-14 12:09 | EXTERNAL MEDICAL SUMMARY RPT | Continuity of Care Document ---
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
--- OUTSIDE RECORDS SUMMARY | 2020-07-14 13:19 | EXTERNAL MEDICAL SUMMARY RPT | Continuity of Care Document ---
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
[2020-07-14] MEDS ORDERED: LIDOCAINE PATCH 5% TOP STA (13:50)
[2020-07-14] MEDS ORDERED: ACETAMINOPHEN 325 MG TABLET PO STA (13:50)
[2020-07-14] MEDS ORDERED: KETOROLAC 30 MG/ML VIAL IVP STA (13:50)
[2020-07-14] MEDS ORDERED: SODIUM CHLORIDE 0.9% 1,000 ML IV STA (13:50)
[2020-07-14] MEDS ORDERED: diphenhydrAMINE INJ 50 MG/ML VIAL IVP STA (13:51)
[2020-07-14] MEDS ORDERED: METOCLOPRAMIDE 10 MG/2 ML VIAL IVP STA (13:51)
[2020-07-14] MEDS ORDERED: methocarbamoL 500 MG TABLET PO STA (13:54)
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
[2020-07-14 15:07] VITALS: BP 162/84
== END 2020-07-14 15:08 | disposition home or self-care (01) ==
LOC: ED 12:05
DX: G43.909 Migraine, unspecified, not intractable, without status migrainosus (principal); M54.5 Low back pain; G89.29 Other chronic pain; I10 Essential (primary) hypertension; Z87.891 Personal history of nicotine dependence
CPT/HCPCS: 96374; 96375; 99283; 99284; A9270; J1200; J2765

== ENCOUNTER 2020-08-29 14:25 | Outpatient (CLI) | payer OTHER, MEDICAID ==
--- NOTE | 2020-08-29 16:32 | XRAY Report ---
PROCEDURE: Lumbar Spine 2 View INDICATIONS: LOW BACK PAIN TECHNIQUE: 3 views of the lumbar spine were acquired. COMPARISON: None. FINDINGS: Bones: 5 [id number] vertebrae are present. There is multilevel trace retrolisthesis throughout the lumbar spine. Severe foraminal narrowing is noted L5-S1, moderate to severe L4-5. Multilevel mil d disc space narrowing is present. No vertebral body compression fractures. No suspicious bony lesio ns. Soft tissues: Overlying bowel gas pattern is normal. No suspicious soft tissue calcifications. IMPRESSION: Degenerative changes most notable at L5-S1. If there is clinical concern for further ej luation of potential nerve root flattening through the narrowed foramina, MRI lumbar spine is recomme nded. Reviewed by: Courtney Bianchi MD on 08/29/2020 4:31 PM PDT Approved by: Courtney Bianchi MD on 08/29/2020 4:31 PM PDT Station ID: [id number]
== END 2020-08-29 14:26 | disposition home or self-care (01) ==
LOC: DI 14:25
PROVIDERS: ATTEND Internal Medicine
DX: M47.816 Spondylosis without myelopathy or radiculopathy, lumbar region (principal); M47.817 Spondylosis without myelopathy or radiculopathy, lumbosacral region

== ENCOUNTER 2020-09-26 14:17 | Outpatient (CLI) | payer OTHER, MEDICAID ==
--- NOTE | 2020-09-26 15:27 | MRI Report ---
PROCEDURE: Lumbar Spine W/O INDICATIONS: Persistent back pain TECHNIQUE: Noncontrast sagittal T1 spin echo and T2 fast echo, sagittal STIR, axial T1 and T2 fast spin echo thr ough the lumbar spine. In cases with scoliosis, additional coronal T2 fast spin echo may be performe d. COMPARISON: None. FINDINGS: Image quality: Excellent. Alignment and Curvature: Normal lumbar vertebral body height and alignment. Bone Marrow: No suspicious focal marrow signal abnormality or bone marrow edema. Spinal Cord: Normal position and appearance of the conus. Regional Soft Tissues: Prevertebral paraspinous soft tissues are within normal limits. There are smal l bilateral renal cysts. No acute finding of the included unenhanced intraperitoneal visceral structu res. T12-L1: No spinal canal or neural foraminal stenosis. L1-L2: No spinal canal or neural foraminal stenosis. L2-L3: Disc desiccation and disc height loss. Diffuse disc bulge flattens and indents the ventral thecal sac. Mild mass effect upon the descending L3 nerve roots. No neural foraminal stenosis. L3-L4: Disc desiccation and disc height loss. Diffuse disc bulge with a superimposed broad-based po sterior disc protrusion. Disc material displaces the descending L4 nerve roots within both subarticul ar zones. The right L4 nerve roots appear to be interposed between disc and facet material, represent ing possible impingement (series 6 on image 19). Foraminal components of the disc bulge contribute to mild neural foraminal narrowing. L4-L5: Diffuse disc bulge with a superimposed broad-based posterior disc protrusion flattens the ve ntral thecal sac. No significant mass effect upon the traversing L5 nerve roots. Foraminal components of the disc bulge and facet hypertrophy contribute to mild bilateral neural foraminal narrowing, lef t greater right. Small facet effusions. L5-S1: Diffuse disc bulge with mild displacement of the descending S1 nerve roots. No neural forami nal stenosis. IMPRESSION: Degenerative changes in the lower lumbar spine, most pronounced at L3-L4 where there is possible impi ngement of the descending right L4 nerve roots. Facet hypertrophy in the lower lumbar spine represents a potential source of nonradicular axial back pain. Reviewed by: Martínez Welsh MD on 09/26/2020 3:25 PM PDT Approved by: Martínez Welsh MD on 09/26/2020 3:25 PM PDT Station ID: [id number]
== END 2020-09-26 14:18 | disposition home or self-care (01) ==
LOC: DI 14:17
PROVIDERS: ATTEND Internal Medicine
DX: M47.816 Spondylosis without myelopathy or radiculopathy, lumbar region (principal); M51.36 Other intervertebral disc degeneration, lumbar region; M51.37 Other intervertebral disc degeneration, lumbosacral region; M51.26 Other intervertebral disc displacement, lumbar region

== ENCOUNTER 2020-11-14 07:41 | Outpatient (CLI) | payer MEDICAID ==
[2020-11-14 08:21] LABS: ALBUMIN 4.3 g/dL (3.2-5.5); ALBUMIN/GLOBULIN RATIO 1.4 (1.0-2.2); ALKALINE PHOSPHATASE 54 IU/L (42-121); ALT ALANINE AMINOTRANSFERASE 40 IU/L (10-60); AST ASPARTATE AMINOTRANSFERASE 31 IU/L (10-42); BILIRUBIN,TOTAL 0.6 mg/dL (0.2-1.0); BUN - BLOOD UREA NITROGEN 17 mg/dL (6-20); CALCIUM 9.2 mg/dL (8.5-10.3); CARBON DIOXIDE - CO2 23 mmol/L (21-32); CHLORIDE 106 mmol/L (101-111); CHOL/HDL RATIO 4.2 (<4.4); CHOLESTEROL 178 mg/dL; CREATININE 0.7 mg/dL (0.4-1.0); CRP HIGH SENSITIVITY 6.3 mg/L; GFR - MDRD 93 (>89); GLUCOSE 113 mg/dL (70-100); HDL CHOLESTEROL 42 mg/dL; LDL CHOLESTEROL,CALCULATED 109 mg/dL; LDL/HDL RATIO 2.6 (<4.4); POTASSIUM 4.3 mmol/L (3.5-5.0); SODIUM 139 mmol/L (135-145); TOTAL PROTEIN 7.4 g/dL (6.7-8.2); TRIGLYCERIDES 135 mg/dL; VLDL CHOLESTEROL 27 mg/dL
[2020-11-14 08:30] LABS: BASOPHILS # (AUTO) 0.1 10^3/uL (0.0-0.1); BASOPHILS % (AUTO) 0.6 %; EOSINOPHILS # (AUTO) 0.3 10^3/uL (0.0-0.7); EOSINOPHILS % (AUTO) 3.4 %; HCT - HEMATOCRIT 37.3 % (37.0-47.0); LYMPHOCYTES # (AUTO) 2.1 10^3/uL (1.5-3.5); LYMPHOCYTES % (AUTO) 26.7 %; MEAN CORPUSCULAR HGB CONC 32.2 g/dL (32.0-36.0); MEAN CORPUSCULAR VOLUME 83.8 fL (81.0-99.0); MONOCYTES # (AUTO) 0.6 10^3/uL (0.0-1.0); MONOCYTES % (AUTO) 7.5 %; NEUTROPHILS # (AUTO) 4.8 10^3/uL (1.5-6.6); NEUTROPHILS % (AUTO) 60.5 %; PLT - PLATELET COUNT 191 10^3/uL (130-450); RED BLOOD COUNT 4.45 10^6/uL (4.20-5.40); RED CELL DISTRIBUTION WIDTH 16.4 % (12.0-15.0)
[2020-11-14 13:36] LABS: ESTIMATED AVERAGE GLUCOSE 114 mg/dL (70-100); HEMOGLOBIN A1c% 5.6 % (4.27-6.07)
== END 2020-11-14 07:42 | disposition home or self-care (01) ==
LOC: LAB 07:41
PROVIDERS: ATTEND Internal Medicine
DX: Z13.6 Encounter for screening for cardiovascular disorders (principal); Z79.899 Other long term (current) drug therapy; I10 Essential (primary) hypertension; G43.909 Migraine, unspecified, not intractable, without status migrainosus; M54.9 Dorsalgia, unspecified; M62.830 Muscle spasm of back; Z82.49 Family history of ischemic heart disease and other diseases of the circulatory system
CPT/HCPCS: 36415; 80053; 80061; 83036; 83721; 84443; 85025; 86141

== ENCOUNTER 2021-05-06 13:01 | Emergency (ER) | payer MEDICAID ==
[2021-05-06 13:11] VITALS: BP 196/96
[2021-05-06] MEDS ORDERED: DEXAMETHASONE 10 MG/ML VIAL PO STA (13:31)
[2021-05-06] MEDS ORDERED: CHERRY SYRUP 10 ML UDC PO ONE (13:31)
--- NOTE | 2021-05-06 13:32 | ED Physician Documentation ---
PD HPI LOWER EXT INJURY - Stated complaint Stated Complaint: L ANKLE INJ - Chief complaint Chief Complaint: Ext Problem - History obtained from History obtained from: Patient - History of Present Illness PD HPI LOW EXT INJURY LOCATION: Left, Lower leg, Ankle Type of injury: Twist Where injury occurred: Home Timing - onset: Today Timing - duration: Hours Timing - details: Abrupt onset, Still present Improved by: Rest, Immobilization Worsened by: Moving, Palpating Associated symptoms: Swelling. No: Weakness, Numbness, Tingling Contributing factors: No: Anticoagulated Similar symptoms before: No diagnosis Recently seen: Not recently seen - Additional information Additional information: Previous well 40-year-old female has developed some pain in her left Achilles tendon. She has had pain in her right Achilles tendon previously as well. Today she got up out of bed and felt a pop in the back of her leg and has severe cramping at the insertion of the Achilles into the calf muscle and pain at the insertion to the heal. She is able to dorsiflex and plantarflex. She denies any use of antibiotics in the past year and she has had some issue with her Achilles tendons previously. She has a brother who has had rupture of both Achilles tendons. Review of Systems Constitutional: denies: Fever Respiratory: denies: Cough GI: denies: Vomiting Skin: denies: Rash Musculoskeletal: reports: Extremity pain. denies: Neck pain, Back pain Neurologic: denies: Generalized weakness, Focal weakness, Numbness PD PAST MEDICAL HISTORY - Past Medical History Cardiovascular: Hypertension Respiratory: None Neuro: Migraines Endocrine/Autoimmune: None GI: None PAPER BALER: Miscarriage(s) : None HEENT: None Psych: Depression Musculoskeletal: None, Chronic back pain, Other Derm: None - Past Surgical History Past Surgical History: Yes Ortho: Shoulder arthroplasty /PAPER BALER: section - Present Medications Home Medications: Ambulatory Orders Medication Instructions Recorded Confirmed NIFEdipine [Procardia Xl] 30 mg PO DAILY 02/13/19 07/14/20 Propranolol HCl 40 mg PO BID #60 tablet 11/22/19 07/14/20 Amlodipine Besylate [Norvasc] 2.5 mg PO DAILY 07/14/20 07/14/20 Duloxetine HCl [Cymbalta] 60 mg PO DAILY 07/14/20 07/14/20 Meloxicam [Mobic] 7.5 mg ORAL BID 07/14/20 07/14/20 Sumatriptan Succinate [Imitrex] 100 mg PO DAILY PRN 07/14/20 07/14/20 methocarbamoL [Robaxin-750] 750 mg PO Q8H PRN #14 tablet 07/14/20 - Allergies Allergies/Adverse Reactions: Allergies Allergy/AdvReac Type Severity Reaction Status Date / Time codeine Allergy Nausea Verified 05/06/21 13:11 Penicillins Allergy Rash Verified 05/06/21 13:11 - Social History Does the pt smoke?: No Smoking Status: Former smoker Does the pt drink ETOH?: No Does the pt have substance abuse?: No - Immunizations Immunizations are current?: Yes - POLST Patient has POLST: No PD ED PE NORMAL - Vitals Vital signs reviewed: Yes (Tachycardic and hypertensive) - General General: Alert and oriented X 3, No acute distress, Well developed/nourished - HEENT HEENT: Atraumatic, PERRL, EOMI - Neck Neck: Supple, no meningeal sign - Respiratory Respiratory: No respiratory distress - Derm Derm: Normal color, Warm and dry, No rash - Extremities Extremities: No deformity, No edema, Other (There is point tenderness to palpation of the Achilles tendon which is thick and fibrous and there is tenderness both at the insertion to the gastrocs and to the insertion to the heel.) - Neuro Neuro: Alert and oriented X 3, 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 Trace enthesopathy at the Achilles insertion. Achilles tendon is a normal radiographic appearance. There is a small fused os trigonum adjacent to the posterior subtalar joint.), EMP read indepedently, See rad report PD MEDICAL DECISION MAKING - ED course Complexity details: reviewed old records, reviewed results, re-evaluated patient, considered differential, d/w patient ED course: 40-year-old female with pain to the left Achilles tendon appears to have Achilles tendinopathy. This apparently even shows up on her plain film. She has a family history of a brother who has ruptured both Achilles tendon. I have placed the patient into a walking boot and asked her to follow-up with orthopedics for any further available treatment. Departure - Departure Disposition: 01 Home, Self Care Clinical Impression: Insertional Achilles tendinopathy Condition: Stable Instructions: Surgery Achilles Tendon Repair, ED Tendon Rupture Achilles Follow-Up: Faizan Garcia MD [Provider Admit Priv/Credential] - Comments: Maria G, today it looks like you have some inflammation to your Achilles tendon on the left side. We have placed into a walking boot and attempt to avoid rupture of this tendon. We have given you a dose of dexamethasone. Follow-up with Dr. Garcia for further treatment. Discharge Date/Time: 05/06/21 14:38
--- NOTE | 2021-05-06 13:51 | XRAY Report ---
PROCEDURE: Ankle 3 View LT INDICATIONS: posterior pain TECHNIQUE: 3 views of the ankle were acquired. COMPARISON: None FINDINGS: Bones: No fractures or dislocations. Ankle mortise is normally aligned. There is a small fused os t rigonum. Small plantar calcaneal spur and trace Achilles tendon enthesopathy are present. No suspicio us bony lesions. Soft tissues: No tibiotalar joint effusion. Achilles tendon appears normal. IMPRESSION: 1. Trace enthesopathy at the Achilles insertion. Achilles tendon is a normal radiographic appearance. 2. There is a small fused os trigonum adjacent to the posterior subtalar joint. Reviewed by: Yessenia Gómez MD on 05/06/2021 1:50 PM PDT Approved by: Yessenia Gómez MD on 05/06/2021 1:50 PM PDT Station ID: [id number]
== END 2021-05-06 14:38 | disposition home or self-care (01) ==
LOC: ED 13:01
DX: M67.874 Other specified disorders of tendon, left ankle and foot (principal); Z87.891 Personal history of nicotine dependence
CPT/HCPCS: 73610; 99282; 99283; A9270

== ENCOUNTER 2021-11-05 15:37 | Outpatient (CLI) | payer MEDICAID ==
[2021-11-05 19:06] LABS: RHEUMATOID FACTOR NEGATIVE (Negative)
[2021-11-07 16:08] LABS: ANTINUCLEAR ANTIBODIES IFA Negative (.)
[2021-11-07 20:07] LABS: CYCLIC CITRULLINATED PEP IGG/A 5 units (0-19)
== END 2021-11-05 15:38 | disposition home or self-care (01) ==
LOC: LAB 15:37
PROVIDERS: ATTEND Internal Medicine
DX: M25.50 Pain in unspecified joint (principal); L40.9 Psoriasis, unspecified; R59.1 Generalized enlarged lymph nodes
CPT/HCPCS: 36415; 84550; 85651; 86038; 86140; 86200; 86430

== ENCOUNTER 2021-11-12 17:13 | Outpatient (CLI) | payer MEDICAID ==
--- NOTE | 2021-11-13 16:57 | Ultrasound Report ---
PROCEDURE: Head or Neck Soft Tissue INDICATIONS: MASS AT LEFT JAWLINE TECHNIQUE: Real time scanning was performed of the neck region of interest, with image documentation . COMPARISON: None. FINDINGS: There is a nonvascular hypoechoic focus within the left submandibular region measuring 34 m m x 20 mm by 24 mm at the posterior inferior aspect of the parotid gland. IMPRESSION: Left neck mass. Initial further assessment with neck CT with intravenous contrast is recommended. Reviewed by: Ariel Siddiqui MD on 11/13/2021 4:55 PM PDT Approved by: Ariel Siddiqui MD on 11/13/2021 4:55 PM PDT Station ID: [id number]
== END 2021-11-12 17:14 | disposition home or self-care (01) ==
LOC: DI 17:13
PROVIDERS: ATTEND Internal Medicine
DX: R22.1 Localized swelling, mass and lump, neck (principal)

== ENCOUNTER 2021-12-30 13:40 | Outpatient (CLI) | payer MEDICAID ==
[2021-12-30] MEDS ORDERED: iohexoL-300 100 ML VIAL ONE (13:59)
[2021-12-30 14:15] LABS: CREATININE 0.7 mg/dL (0.4-1.0)
[2021-12-30] MEDS ORDERED: iohexoL-300 100 ML VIAL IVP ONE (18:07)
--- NOTE | 2021-12-31 11:43 | CT Report ---
PROCEDURE: SOFT TISSUE NECK W INDICATIONS: MASS OF NECK CONTRAST: 100 ml Omnipque 300 TECHNIQUE: After the administration of intravenous contrast, 3.0 mm axial sections acquired from the sella to th e aortic arch. Additional oblique axial 3.0 mm sections acquired through the pharynx. 3 mm thick co harshal reformats were generated. For radiation dose reduction, the following was used: automated exp osure control, adjustment of mA and/or kV according to patient size. COMPARISON: Relation is made with ultrasound, 11/12/2021. FINDINGS: Image quality: Excellent. Lymph nodes: No enlarged lymph nodes seen throughout the neck. Vessels: Visualized vasculature appears patent. Neck spaces: The oropharynx, nasopharynx, and pharynx demonstrate no mucosal lesions. On the base o f the tongue, there is slightly asymmetric month tissue seen. The vocal cords, false vocal cords, pyr iform sinuses, epiglottis, vallecula, and tongue base otherwise appear normal. Extramucosal spaces a ppear unremarkable. Glands: At the area of clinical concern, there is a rounded, mildly enhancing mass seen within the d eep inferior aspect of the left parotid that measures 2.1 x 2.3 cm in greatest axial dimension, with a craniocaudal extent of 2.8 cm. No additional mahad masses are seen. However, additional tiny enhanc ing foci can be seen along the periphery of each parotid gland, which have the appearance of normal-a ppearing lymph nodes. The submandibular glands appear normal. The thyroid is normal in size and there are no incidental fi ndings. Miscellaneous: Visualized brain and orbits appear normal. Lung apices appear clear. Superficial so ft tissues appear normal. Bones: No suspicious bony lesions. Visualized sinuses and mastoids appear unremarkable. IMPRESSION: At the area of clinical concern, there is a 2.8 cm mass within the inferior deep aspect of the left p arotid gland. Differential diagnosis includes Warthin tumor and pleomorphic adenoma. Additional possi bilities include metastasis, abnormal intraparotid lymph node, and parotid carcinoma. No enlarged lymph nodes are seen separate from this mass. Please consider ENT consultation. Percutaneous ultrasound-guided fine-needle aspiration may also be helpful. Prominence of asymmetric tissue can be seen at the base of the tongue on both sides, which is not reg arded to be frankly pathologic. Reviewed by: Gabe Metz MD on 12/31/2021 10:42 AM [place] Approved by: Gabe Metz MD on 12/31/2021 10:42 AM [facility] Station ID: [id number]
== END 2021-12-30 13:41 | disposition home or self-care (01) ==
LOC: LAB 13:40
PROVIDERS: ATTEND Internal Medicine
DX: K11.9 Disease of salivary gland, unspecified (principal)
CPT/HCPCS: 36415; 70491; 82565; Q9967

== ENCOUNTER 2022-07-07 16:20 | Emergency (ER) | payer OTHER, MEDICAID ==
--- NOTE | 2022-07-07 17:17 | XRAY Report ---
PROCEDURE: Shoulder 3 View RT INDICATIONS: trauma TECHNIQUE: 3 views of the shoulder were acquired. COMPARISON: None. FINDINGS: Bones: No fractures or dislocations. No suspicious bony lesions. Visualized ribs appear intact. Soft tissues: No suspicious soft tissue calcifications. IMPRESSION: No acute bony abnormality. Reviewed by: Errol Doyle on 07/07/2022 5:16 PM PDT Approved by: Errol Doyle on 07/07/2022 5:16 PM PDT Station ID: [id number]
[2022-07-07] MEDS ORDERED: LIDOCAINE PATCH 5% TOP STA (17:25)
[2022-07-07] MEDS ORDERED: ACETAMINOPHEN 500 MG TABLET PO STA (17:25)
[2022-07-07] MEDS ORDERED: IBUPROFEN 800 MG TABLET PO STA (17:25)
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
[2022-07-07 17:36] VITALS: BP 149/97
== END 2022-07-07 17:35 | disposition home or self-care (01) ==
LOC: ED 16:20
DX: S46.911A Strain of unspecified muscle, fascia and tendon at shoulder and upper arm level, right arm, initial encounter (principal); R51.9 Headache, unspecified; V49.88XA Car occupant (driver) (passenger) injured in other specified transport accidents, initial encounter; Y92.410 Unspecified street and highway as the place of occurrence of the external cause; M62.838 Other muscle spasm; I10 Essential (primary) hypertension; Z87.891 Personal history of nicotine dependence
CPT/HCPCS: 73030; 99283; A9270

== ENCOUNTER 2022-09-27 11:08 | Emergency (ER) | payer MEDICAID ==
[2022-09-27 11:24] VITALS: BP 138/76
--- NOTE | 2022-09-27 11:33 | ED Physician Documentation ---
PD HPI SKIN - Stated complaint Stated Complaint: RT LEG ABSCESS - Chief complaint Chief Complaint: Wound - History obtained from History obtained from: Patient - Additional information Additional information: 42-year-old female presents with right leg abscess. She states has been present for about 6 weeks, she has tried to drain it herself and did have some purulent drainage but then it returned. Is mildly painful, no active drainage, no fever or chills. She has had several abscesses in the past and has done well with Bactrim for antibiotics in the past. She denies any other concerns today. 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 HEENT: None Psych: Depression Musculoskeletal: None, Chronic back pain, Other Derm: None - Past Surgical History Past Surgical History: Yes Ortho: Shoulder arthroplasty /THREADING MACHINE SETTER: section - Present Medications Home Medications: Ambulatory Orders Medication Instructions Recorded Confirmed Propranolol HCl 40 mg PO BID #60 tablet 11/22/19 09/27/22 Meloxicam [Mobic] 7.5 mg ORAL BID 07/14/20 09/27/22 Sumatriptan Succinate [Imitrex] 100 mg PO DAILY PRN 07/14/20 09/27/22 Cyclobenzaprine [Flexeril] 10 mg PO TID PRN #20 tablet 07/07/22 09/27/22 Adalimumab [Humira(Cf) Pen] 40 mg SUBQ PRN PRN 09/27/22 09/27/22 Sulfamethox/Trimeth 800/160 1 tablet PO BID 7 Days #14 tablet 09/27/22 [Bactrim Ds] Venlafaxine HCl [Effexor Xr] 150 mg PO DAILY 09/27/22 09/27/22 - Allergies Allergies/Adverse Reactions: Allergies Allergy/AdvReac Type Severity Reaction Status Date / Time codeine Allergy Nausea Verified 03/23/22 11:50 Penicillins Allergy Rash Verified 07/07/22 16:26 - Social History Does the pt smoke?: No Smoking Status: Former smoker Does the pt drink ETOH?: No Does the pt have substance abuse?: No - Immunizations Immunizations are current?: Yes - POLST Patient has POLST: No PD ED PE NORMAL - Vitals Vital signs reviewed: Yes - General General: Alert and oriented X 3, No acute distress, Well developed/nourished - Cardiac Cardiac: RRR, No murmur - Respiratory Respiratory: No respiratory distress, Clear bilaterally - Derm Derm: Normal color, Warm and dry, Other (2 cm soft and fluctuant lesion medial right upper thigh. Mild surrounding bruising, no erythema, no current drainage.) - Extremities Extremities: No deformity, No tenderness to palpate, Normal ROM s pain, No edema, No calf tenderness / cord - Neuro Neuro: Alert and oriented X 3 Eye Opening: Spontaneous Motor: Obeys Commands Verbal: Oriented GCS Score: 15 - Psych Psych: Normal mood, Normal affect Results - Vitals Vitals: Vital Signs - 24 hr 09/27/22 11:20 Temperature 36.6 C Heart Rate 94 Respiratory 20 Rate Blood Pressure 138/76 H O2 Saturation 99 Oxygen O2 Source Room air Procedures - Abscess I&D (location) Lower extremity right Medial Preparation: Lidocaine 1% Incision: Incised with scalpel, Purulent drainage, Loculations broken Other: Pt tolerated well PD Medical Decision Making - ED course Complexity details: d/w patient ED course: 42-year-old female presented with right medial thigh abscess as described above. Is been present for about 6 weeks but not improving. On exam there is a fluctuant lesion in the medial thigh and I thought it would respond well to an incision and drainage. I discussed this with patient and she verbally consented to proceed. Wound was prepped in usual manner, anesthetized locally with 3 mils of 1% plain lidocaine and incised with scalpel. There was immediate moderate purulent drainage. Loculations were broken up with hemostats and the wound was again cleaned and then dressed with gauze dressing. We will place the patient on Bactrim as she has not responded well to this in the past. She was given home wound care instructions as well as return precautions if symptoms were to worsen at all including fever, increased erythema, increased swelling or other new concerns. Departure - Departure Disposition: 01 Home, Self Care Clinical Impression: Abscess of right thigh Condition: Good Instructions: ED Abscess IandD Prescriptions: Sulfamethox/Trimeth 800/160 [Bactrim Ds] 1 tablet PO BID 7 Days #14 tablet Comments: We lanced your abscess and drained some purulent drainage. There is still a little more drainage that needs to occur so please use a warm compress to the area and expect some additional drainage. I have started you on a course of antibiotics as well. If the area gets red or worsens in any way, or you develop a fever, please return to the ER. Antibiotics sent to [facility]. Forms: PCP List
== END 2022-09-27 12:07 | disposition home or self-care (01) ==
LOC: ED 11:08
DX: L02.415 Cutaneous abscess of right lower limb (principal); I10 Essential (primary) hypertension; Z87.891 Personal history of nicotine dependence
CPT/HCPCS: 10060

== ENCOUNTER 2023-04-19 18:11 | Emergency (ER) | payer MEDICAID ==
--- NOTE | 2023-04-19 18:28 | ED Physician Documentation ---
History of Present Illness - Stated complaint Stated Complaint: MED REACTION - Chief complaint Chief Complaint: General - History obtained from History obtained from: Patient - Additonal information Additional information: 42-year-old woman with history of migraines, fibromyalgia, and psoriatic arthritis. She had a first dose of Enbrel on Wednesday at [facility]. Shortly thereafter she started to feel poorly with headache different than her migraines with a lot of pressure on the right side, and it was not responsive to her usual sumatriptan. She was very energetic though getting a lot done. To meet axonal sounded like manic thing but she denies history of same. And then EMS reports that she was aggressive with family but she states "that is because my mom and sister are both bitches." PD PAST MEDICAL HISTORY - Past Medical History Past Medical History: Yes Cardiovascular: Hypertension Respiratory: None Neuro: Migraines Endocrine/Autoimmune: None GI: None BRADDISHER: Miscarriage(s) : None HEENT: None Psych: Depression Musculoskeletal: None, Chronic back pain, Other Derm: None - Past Surgical History Past Surgical History: Yes Ortho: Shoulder arthroplasty /BRADDISHER: section - Present Medications Home Medications: Ambulatory Orders Medication Instructions Recorded Confirmed Propranolol HCl 40 mg PO BID #60 tablet 11/22/19 04/19/23 Sumatriptan Succinate [Imitrex] 100 mg PO DAILY PRN 07/14/20 04/19/23 Cyclobenzaprine [Flexeril] 10 mg PO TID PRN #20 tablet 07/07/22 04/19/23 Venlafaxine HCl [Effexor Xr] 150 mg PO DAILY 09/27/22 04/19/23 - Allergies Allergies/Adverse Reactions: Allergies Allergy/AdvReac Type Severity Reaction Status Date / Time codeine Allergy Mild Nausea Verified 04/19/23 18:24 Penicillins Allergy Rash Verified 04/19/23 18:24 - Social History Does the pt smoke?: No Smoking Status: Never smoker Does the pt drink ETOH?: No Does the pt have substance abuse?: No - Immunizations Immunizations are current?: Yes - POLST Patient has POLST: No PD ED PE NORMAL - Vitals Vital signs reviewed: Yes - General General: Alert and oriented X 3, No acute distress - HEENT HEENT: PERRL, EOMI - Neck Neck: Supple, no meningeal sign, No bony TTP - Neuro Neuro: Alert and oriented X 3, chief talent officer 2-12 intact, No motor deficit, No sensory deficit Eye Opening: Spontaneous Motor: Obeys Commands Verbal: Oriented GCS Score: 15 Results - Vitals Vitals: Vital Signs - 24 hr 04/19/23 04/19/23 18:13 20:06 Temperature 37.4 C Heart Rate 95 90 Respiratory 16 16 Rate Blood Pressure 172/90 H 141/90 H O2 Saturation 94 99 Oxygen O2 Source Room air - Rads (name of study) CT Head Relevant Findings:: Final report received, EMP independent interpretation of test PD Medical Decision Making - ED course ED course: She presents with a headache different than her usual. She mostly just pissed off and her family. This all started after getting a in Norm stepped shot on Wednesday, I do not see any listed side effects from etanercept that would include neuropsychiatric issues or headaches. T she was administered a migraine anastasiia ktail with excellent relief of her pain and then admitted that she was mostly just angry and wanted a shot of Ativan which was given. Departure - Departure Disposition: 01 Home, Self Care Clinical Impression: Migraine Qualifiers: Migraine type: unspecified Status migrainosus presence: with status migrainosus Intractability: not intractable Qualified Code(s): G43.901 - Migraine, unspecified, not intractable, with status migrainosus Condition: Good Record reviewed to determine appropriate education?: Yes Instructions: ED Cephalgia Unspecified Comments: Call your doctor to arrange a follow-up appointment, make the next available appointment. In the interim, return anytime if worse or if new symptoms develop. Forms: PCP List Discharge Date/Time: 04/19/23 20:06
[2023-04-19] MEDS: METOCLOPRAMIDE 10 MG/2 ML VIAL IVP STA (18:35)
[2023-04-19] MEDS: diphenhydrAMINE INJ 50 MG/ML VIAL IVP STA (18:35)
[2023-04-19] MEDS: DEXAMETHASONE 10 MG/ML VIAL IVP STA (18:35)
[2023-04-19] MEDS: SODIUM CHLORIDE 0.9% 1,000 ML IV STA (18:36)
--- NOTE | 2023-04-19 19:22 | CT Report ---
PROCEDURE: Head WO INDICATIONS: headache TECHNIQUE: Noncontrast 4.5 mm thick angled axial sections acquired from the foramen magnum to the vertex. For r adiation dose reduction, the following was used: automated exposure control, adjustment of mA and/or kV according to patient size. COMPARISON: None. FINDINGS: Image quality: Diagnostic CSF spaces: Basal cisterns are patent. Lateral ventricles are symmetric. Volume: Generally maintained Brain: No intracranial hemorrhage. Diaz-white differentiation is grossly maintained. Craniofacial structures: No significant paranasal sinus opacity. IMPRESSION: No acute intracranial abnormality. If there is high concern for parenchymal pathology, consider furth er evaluation with MRI. Reviewed by: Allan Odonnell MD on 04/19/2023 7:20 PM [facility] Approved by: Allan Odonnell MD on 04/19/2023 7:20 PM [facility] Station ID: [id number]
[2023-04-19] MEDS: LORazepam 2 MG/ML VIAL IVP STA (19:51)
[2023-04-19 20:08] VITALS: BP 141/90; O2SAT 99
== END 2023-04-19 20:06 | disposition home or self-care (01) ==
LOC: EDUNIT# → ED 18:11
DX: G43.901 Migraine, unspecified, not intractable, with status migrainosus (principal); I10 Essential (primary) hypertension; Z79.899 Other long term (current) drug therapy
CPT/HCPCS: 70450; 96374; 96375; 99283; 99284; J1200; J2060; J2765

== ENCOUNTER 2023-04-19 18:21 | Outpatient (CLI) | payer MEDICAID | END 2023-04-19 23:59 | disposition critical access hospital (66) | LOC: EMS 18:21 | DX: R46.89 Other symptoms and signs involving appearance and behavior (principal); R51.9 Headache, unspecified | CPT/HCPCS: A0425; A0429; A0999 ==